=== PATIENT | female | born 1945 | race Caucasian/White ===

== ENCOUNTER 2022-01-31 06:18 | Day surgery (SDC) | payer MEDICARE ==
[2022-01-26 15:48] LABS: BASOPHILS # (AUTO) 0.1 X10'3 (0-0.2); BASOPHILS % (AUTO) 1.2 % (0-1); EOSINOPHILS # (AUTO) 0.1 X10'3 (0-0.9); EOSINOPHILS % (AUTO) 1.4 % (0-6); LYMPHOCYTES # (AUTO) 1.6 X10'3 (1.1-4.8); LYMPHOCYTES % (AUTO) 33.6 % (21-51); MEAN CORPUSCULAR HEMOGLOBIN 31.8 PG (27.0-31.0); MEAN CORPUSCULAR HGB CONC 33.5 g/dL (33.0-36.5); MEAN CORPUSCULAR VOLUME 94.8 FL (78-98); MEAN PLATELET VOLUME 8.3 FL (7.4-10.4); MONOCYTES # (AUTO) 0.4 X10'3 (0-0.9); MONOCYTES % (AUTO) 8.7 % (2-12); NEUTROPHILS # (AUTO) 2.5 X10'3 (1.8-7.7); NEUTROPHILS % (AUTO) 55.1 % (42-75); PRE OP HEMATOCRIT 43.5 % (35.0-45.0); PRE OP HEMOGLOBIN 14.6 g/dL (12.0-16.0); PRE OP PLATELET COUNT 211 X10'3 (140-440); RED BLOOD COUNT 4.59 X10'6 (4.20-5.60); RED CELL DISTRIBUTION WIDTH 12.5 % (11.5-14.5)
[2022-01-26 15:56] LABS: ALBUMIN 4.6 G/DL (3.4-5.0); ALBUMIN/GLOBULIN RATIO 1.5 (1.1-1.5); ALKALINE PHOSPHATASE 78 IU/L (46-116); BLOOD UREA NITROGEN 7 MG/DL (7-18); CALCIUM 9.8 MG/DL (8.5-10.1); CHLORIDE 103 MMOL/L (99-107); CREATININE 0.54 MG/DL (0.40-0.90); PRE OP ALT 21 U/L (30-65); PRE OP ANION GAP 7 (8-16); PRE OP AST 25 U/L (10-37); PRE OP GLUCOSE 94 MG/DL (70-104); PRE OP POTASSIUM 3.4 MMOL/L (3.4-5.1); PRE OP SODIUM 140 MMOL/L (135-145); TOTAL CARBON DIOXIDE 30.3 MMOL/L (24-32); TOTAL PROTEIN 7.7 G/DL (6.4-8.2); eGFR > 90 ML/MIN
[2022-01-31] VITALS (21 sets, daily range): BP systolic 109–155; BP diastolic 53–83
[~2022-01-31] VITALS: Ht 160 cm; Wt 51.4 kg
[~2022-01-31 06:18] MED LIST: NO HOME MEDS; ceFAZolin inj. 2,000 MG in dextrose 5%-water 100 ML IV ONE; famotidine 20mg tablet PO ONE; ringers solution, lacted 1,000 ML IV SCH
[2022-01-31] MEDS ORDERED: BUPIVAcaine 0.5% inj/PF 30 ML ONE (07:39)
[2022-01-31] MEDS ORDERED: neostigmine methylsulfate 1 MG/ML 10ml vial ONE (08:05)
[2022-01-31] MEDS ORDERED: glycopyrrolate 0.2mg/ml inj ONE (08:05)
[2022-01-31] MEDS ORDERED: ondansetron/PF 4mg/2ml inj ONE (08:05)
[2022-01-31] MEDS ORDERED: acetaminophen 1000 MG/100ml vial IV ONE (08:05)
[2022-01-31] MEDS ORDERED: sevoflurane 250ml liquid IH ONE (08:05)
[2022-01-31 08:12] LABS: CLARITY,URINE CLEAR (Clear); COLOR,URINE STRAW (Yellow); GLUCOSE, URINE NEGATIVE (Neg); KETONES,URINE 15 mg/dl (Neg); LEUKOCYTE ESTERASE ,URINE NEGATIVE (Neg); NITRITES, URINE NEGATIVE (Neg); OCCULT BLOOD,URINE TRACE-INTACT (Neg); PROTEIN,URINE NEGATIVE (Neg); UROBILINOGEN,URINE 0.2 E.U/dL (0.2-1.0)
[2022-01-31] MEDS ORDERED: fentaNYL/PF 50MCG/1 ML 2ML syringe ONE (08:13)
[2022-01-31 08:19] LABS: UA COLLECTION TYPE CLN CATCH MIDSTREAM
[2022-01-31 08:21] LABS: BACTERIA,URINE NONE SEEN /HPF (Neg); SQUAMOUS EPITHELIAL CELL,UR NONE SEEN /LPF (FEW); WBC,URINE 0-4 /HPF (0-4)
[2022-01-31] MEDS ORDERED: rocuronium 10mg/ml inj IV ONE (08:25)
[2022-01-31] MEDS ORDERED: dexamethasone sod phosphate 4mg/ml inj. ONE (08:25)
[2022-01-31] MEDS ORDERED: LIDOcaine 2% (20mg/ml) 5ml vial ONE (08:25)
[2022-01-31] MEDS ORDERED: propofol inj 20 ML IV ONE (08:25)
[2022-01-31] MEDS ORDERED: ringers solution, lacted 1,000 ML IV SCH (08:50)
[2022-01-31] MEDS ORDERED: ondansetron/PF 4mg/2ml inj IV PRN (08:50)
[2022-01-31] MEDS ORDERED: HYDROmorphone/PF 0.2 MG/ML SYRINGE IV PRN ×2 (08:50)
[2022-01-31] MEDS ORDERED: BUPIVAcaine 0.5% inj/PF 30 ml vial IJ ONE (08:55)
--- NOTE | 2022-01-31 09:27 | NUR ---
Received from OR via AUTUMN, accompanied by Anesthesiologist DR ROBERT and report given by Anesthesiologist AND POWER SYSTEM DISPATCHER. PT DROWSY, DENIES PAIN. ABDOMEN W/3 LAP SITES W/DERMABOND CDI. Addendum: 01/31/22 at 0954 by Haley Peña RN Amended: Links added.
[2022-01-31] MEDS: morphine 2 MG/ML inj. syringe IV PRN ×2 (09:39→09:57)
[2022-01-31] MEDS ORDERED: traMADol 50MG tablet PO ONE (10:45)
--- NOTE | 2022-01-31 13:41 | NUR ---
12:50 PT STATES SHE IS FEELING BETTER AND NO LONGER LIGHT HEADED, PT STOOD UP AND BECAME NAUSEOUS, PT HAD DECLINED NAUSEA MEDICATION EARLIER, PT BACK TO [facility] AND 4 MG ZOFRAN GIVEN. 13:50 PT STATES NAUSEA SUBSIDED AND SHE FEELS MUCH BETTER, PT ABLE TO STAND AND AMBULATE SAFELY. Addendum: 01/31/22 at 1354 by Haley Peña RN Amended: Links added.
--- NOTE | 2022-01-31 14:17 | NUR ---
PT UP AND ABLE TO AMBULATE SAFELY, DENIES NAUSEA, STATES PAIN IS MINIMAL. D/C INSTRUCTIONS GIVEN AND GONE OVER W/PT WHO VERBALIZED UNDERSTANDING. PT D/CD TO HOME VIA W/C TO PRIVATE VEHICLE W/O INCIDENT. Addendum: 01/31/22 at 1540 by Haley Peña RN Amended: Links added.
== END 2022-01-31 14:17 | disposition home or self-care (01) ==
LOC: PRE-OP 06:18
PROVIDERS: ATTEND Surgery
DX: K41.90 Unilateral femoral hernia, without obstruction or gangrene, not specified as recurrent (principal); G43.909 Migraine, unspecified, not intractable, without status migrainosus; I37.1 Nonrheumatic pulmonary valve insufficiency; Z98.890 Other specified postprocedural states; Z79.899 Other long term (current) drug therapy
CPT/HCPCS: 36415; 49659; 74176; 80053; 81001; 82948; 85025; 93005; 93306; C1758; C1781; J0131; J0690; J1100; J2270; J2405; J2704; J2710; J3010; J3490; J7030; J7060; J7120; S0020; Z7506; Z7508; Z7512; A4215; A4618